=== PATIENT | male | born 1965 | race Two or more races ===

== ENCOUNTER 2021-11-26 18:06 | Emergency (ER) | payer MEDICAID, OTHER ==
[~2021-11-26] VITALS: Ht 167.6 cm; Wt 53.1 kg
[2021-11-26] MEDS ORDERED: KETOROLAC TROMETH 30 MG/ML 1ML VIAL IV ONE (18:30)
[2021-11-26] MEDS ORDERED: diazePAM 5 MG TAB PO ONE (18:30)
[2021-11-26] MEDS ORDERED: SODIUM CHLORIDE 0.9% 1,000 ML IV ONE (18:30)
[2021-11-26] MEDS ORDERED: ONDANSETRON HCL 4 MG/2 ML VIAL IV ONE (18:30)
[2021-11-26] MEDS ORDERED: HYDROmorphone HCL 2 MG/ML VL IV ONE (18:30)
[2021-11-26 21:32] LABS: Urine WBC None Seen /hpf (0 - 3)
[2021-11-26 21:45] LABS: Urine Amorphous Crystal FEW /hpf (None Seen); Urine Bacteria FEW /hpf (None Seen); Urine Blood Negative /uL (Negative); Urine Specific Gravity 1.007 (1.001-1.035)
[2021-11-26] MEDS ORDERED: DIAZ10TA3 PO (23:13)
[2021-11-26] MEDS ORDERED: IBUP600T27 PO (23:13)
[2021-11-26] MEDS ORDERED: HYDR-4902 PO (23:13)
[2021-11-27 00:15] VITALS: BP 112/74
== END 2021-11-27 00:25 | disposition home or self-care (01) ==
LOC: ER 18:06
DX: M54.50 Low back pain, unspecified (principal); I10 Essential (primary) hypertension; E78.5 Hyperlipidemia, unspecified
CPT/HCPCS: 72131; 81001; 96361; 96374; 96375; 99285; J1170; J1885; J2405; J7030

== ENCOUNTER 2022-12-29 03:57 | Emergency (ER) | payer MEDICAID, OTHER ==
[~2022-12-29] VITALS: Ht 170.2 cm; Wt 48.0 kg
[~2022-12-29 03:57] MED LIST: CHOL20004 PO; NIFE1TAB31 PO; NITR0.4S29 SL; OMEP20TA PO; ONDA-144 PO; PANT40TA2 PO; PREG50CA PO; TRAM50TA2 PO
[2022-12-29 04:19] VITALS: BP 140/95
[2022-12-29 05:23] LABS: Urine Bacteria NONE SEEN /hpf (None Seen); Urine Blood Negative /uL (Negative); Urine Specific Gravity 1.007 (1.001-1.035); Urine WBC <1 /hpf (0 - 3)
[2022-12-29] MEDS ORDERED: fentaNYL CITRATE 100 MCG/2 ML VL ONE (13:36)
[2022-12-29] MEDS ORDERED: MIDAZOLAM HCL 2MG/2ML 2ml VIAL (1mg/ml) ONE (13:36)
[2022-12-29] MEDS ORDERED: ONDANSETRON HCL 4 MG/2 ML VIAL ONE (13:53)
[2022-12-29] MEDS ORDERED: PROPOFOL 10 MG/ML 20 ML IV ONE (14:06)
== END 2022-12-29 08:05 | disposition left against medical advice (07) ==
LOC: ER 03:57
DX: R10.9 Unspecified abdominal pain (principal); Z53.21 Procedure and treatment not carried out due to patient leaving prior to being seen by health care provider
CPT/HCPCS: 81001; 99281; J2250; J2405; J2704; J3010

== ENCOUNTER 2022-12-29 10:57 | Day surgery (SDC) | payer MEDICAID, OTHER ==
[2022-12-23 13:06] LABS: Basophils # (auto) 0 10 ^3/uL (0-0.2); Basophils % (auto) 0.9 % (0.0-2.0); Eosinophils # (auto) 0 10 ^3/uL (0-0.8); Eosinophils % (auto) 0.7 % (0.0-7.0); Hemoglobin 15.1 g/dL (13.5-17.5); Lymphocytes % (auto) 23.3 % (10.0-50.0); Mean Corpuscular Hemoglobin 30.3 pg (28.0-32.0); Mean Corpuscular Hgb Conc. 34.4 g/dL (32.0-36.0); Mean Corpuscular Volume 88.2 fL (80.0-100.0); Monocytes # (auto) 0.3 10 ^3/uL (0-1.3); Monocytes % (auto) 8.2 % (0.0-12.0); Neutrophils # (auto) 2.7 10 ^3/uL (1.6-8.6); Neutrophils % (auto) 66.9 % (37.0-80.0); Nucleated Red Blood Cells % 0.1 %; Red Blood Cells 4.99 10^6/uL (4.5-5.90); White Blood Cell 4.1 10^3/uL (4.4-10.8)
[2022-12-23 13:21] LABS: INR 1.09 (0.9-1.15); Partial Thromboplastin Time 31.8 sec (24.6-33.4)
[2022-12-23 13:27] LABS: Urine Amorphous Crystal FEW /hpf (None Seen); Urine Bacteria NONE SEEN /hpf (None Seen); Urine Blood Negative /uL (Negative); Urine Mucus FEW (None Seen); Urine Specific Gravity 1.018 (1.001-1.035); Urine WBC 12 /hpf (0 - 3)
[2022-12-23 13:47] LABS: Potassium 4.3 mmol/L (3.5-5.1)
[2022-12-23 13:57] LABS: Albumin 4.1 g/dL (3.4-5.0); BUN/Creatinine Ratio 13.5 (10.0-20.0); Bilirubin, Total 0.6 mg/dL (0.2-1.0); Total Protein 7.1 g/dL (6.4-8.2)
[~2022-12-29] VITALS: Ht 172.7 cm; Wt 49.9 kg
[2022-12-29] MEDS ORDERED: ONDANSETRON HCL 4 MG/2 ML VIAL IV PRN (14:00)
[2022-12-29 14:45] VITALS: BP 118/82
== END 2022-12-29 14:55 | disposition home or self-care (01) ==
LOC: GI 10:57
PROVIDERS: ATTEND Internal Medicine Gastroenterology
DX: R63.4 Abnormal weight loss (principal); R11.0 Nausea; R10.12 Left upper quadrant pain; R13.10 Dysphagia, unspecified; K29.50 Unspecified chronic gastritis without bleeding; I10 Essential (primary) hypertension; I69.354 Hemiplegia and hemiparesis following cerebral infarction affecting left non-dominant side; Z79.899 Other long term (current) drug therapy
CPT/HCPCS: 36415; 43239; 45378; 80053; 81001; 85025; 85610; 85730; 88305; 88342; J7030